=== PATIENT | female | born 1980 | race African-American/Black ===

== ENCOUNTER 2020-06-07 15:10 | Outpatient (CLI) | payer OTHER | END 2020-06-07 15:11 | disposition home or self-care (01) | LOC: BICRAD 15:10 | PROVIDERS: ATTEND Internal Medicine | DX: Z02.71 Encounter for disability determination (principal) | CPT/HCPCS: 72040 ==

== ENCOUNTER 2021-12-02 00:54 | Emergency (ER) | payer SELFPAY ==
[2021-12-02] MEDS ORDERED: Bupivacaine 0.25% 10 ML VIAL ONE (05:29)
== END 2021-12-02 06:58 | disposition home or self-care (01) ==
LOC: ERS 00:54
DX: S62.306A Unspecified fracture of fifth metacarpal bone, right hand, initial encounter for closed fracture (principal); W22.8XXA Striking against or struck by other objects, initial encounter; F17.210 Nicotine dependence, cigarettes, uncomplicated
CPT/HCPCS: 29085; 96372; S0020

== ENCOUNTER 2022-08-04 00:02 | Emergency (ER) | payer SELFPAY ==
[2022-08-04 00:57] LABS: Hemoglobin 12.9 g/dL (12.0-16.0); Mean Corpuscular HGB CONC 33.5 g/dL (32.0-36.0); Mean Corpuscular Hemoglobin 29.7 pg (27.0-31.0); Mean Corpuscular Volume 88.7 fl (78.0-98.0); Mean Platelet Volume 9.5 fL (7.4-10.4); Platelet Count 251 10x3/uL (130-400); RBC Distribution Width 13.2 % (11.5-14.5); Red Blood Cell (RBC) Count 4.34 mill/uL (4.20-5.40)
[2022-08-04 00:59] LABS: Delete Auto Diff?? YES; Manual Diff?? YES
[2022-08-04] MEDS ORDERED: Ketorolac Tromethamine 30 MG/ML VIAL ONE (01:16)
[2022-08-04] MEDS ORDERED: Ondansetron PF 4 MG/2 ML Vial ONE (01:16)
[2022-08-04 01:20] LABS: ALT (SGPT) 25 U/L (8-55); AST (SGOT) 33 U/L (5-34); Albumin 3.6 g/dL (3.5-5.0); Alkaline Phosphatase 68 U/L (40-110); Anion Gap 15 mmol/L (10-20); BUN (Urea Nitrogen) 13 mg/dL (7.0-18.7); Bilirubin, Total 0.4 mg/dL (0.2-1.2); Calc. Creatinine Clearance 0 mL/min (70-130); Calcium 9.2 mg/dL (7.8-10.44); Carbon Dioxide 21 mmol/L (22-29); Chloride 101 mmol/L (98-107); Estimated GFR 83; Globulin 5.5 g/dL (2.4-3.5); Glucose 142 mg/dL (70-105); Lipase 13 U/L (8-78); Potassium 4.1 mmol/L (3.5-5.1); Protein, Total 9.1 g/dL (6.0-8.3); Sodium 133 mmol/L (136-145)
[2022-08-04 01:33] LABS: Band 52 % (5-11); Giant Platelets 0.9 % (0-5); Large Platelets 0.9 % (0-5); Lymphocytes 16 % (21-51); Macrocytosis SLIGHT = 6-15 cells HPF (0-5); Metamyelocyte 4 % (0-0); Monocytes 3 % (0-10); Neutrophil 24 % (42-75); Platelet Morphology Comment Platelets Normal; Polychromasia SLIGHT = 2-3 cells HPF (0-2); Smudge Cells 6.3 %; Total Cell Count 111; Vacuoles MODERATE
[2022-08-04 01:35] LABS: Reflex for Review?? YES
== END 2022-08-04 03:10 | disposition home or self-care (01) ==
LOC: ERS 00:02
DX: J18.9 Pneumonia, unspecified organism (principal); F17.210 Nicotine dependence, cigarettes, uncomplicated
CPT/HCPCS: 36415; 71045; 80053; 83690; 85025; 85060; 96361; 96374; 96375; J1885; J2405

== ENCOUNTER 2022-08-05 20:44 | Inpatient (IN) | payer MEDICAID, OTHER, SELFPAY ==
[2022-08-05 21:50] LABS: Hemoglobin 12.4 g/dL (12.0-16.0); Mean Corpuscular HGB CONC 32.4 g/dL (32.0-36.0); Mean Corpuscular Hemoglobin 29.5 pg (27.0-31.0); Mean Platelet Volume 9.8 fL (7.4-10.4); Platelet Count 278 10x3/uL (130-400); RBC Distribution Width 13.5 % (11.5-14.5); Red Blood Cell (RBC) Count 4.21 mill/uL (4.20-5.40); White Blood Cell (WBC) Count 6.6 10x3/uL (4.8-10.8)
[2022-08-05 21:55] LABS: Delete Auto Diff?? YES; Manual Diff?? YES
[2022-08-05] MEDS ORDERED: Ketorolac Tromethamine 30 MG/ML VIAL ONE (21:57)
[2022-08-05] MEDS ORDERED: Acetaminophen 500 MG TAB ONE (22:07)
[2022-08-05 22:11] LABS: ALT (SGPT) 28 U/L (8-55); AST (SGOT) 34 U/L (5-34); Albumin 3.5 g/dL (3.5-5.0); Alkaline Phosphatase 92 U/L (40-110); Anion Gap 13 mmol/L (10-20); BUN (Urea Nitrogen) 9 mg/dL (7.0-18.7); Bilirubin, Total 0.4 mg/dL (0.2-1.2); Calc. Creatinine Clearance 0 mL/min (70-130); Calcium 8.9 mg/dL (7.8-10.44); Carbon Dioxide 23 mmol/L (22-29); Chloride 100 mmol/L (98-107); Estimated GFR 64; Globulin 5.8 g/dL (2.4-3.5); Glucose 117 mg/dL (70-105); Potassium 4.8 mmol/L (3.5-5.1); Protein, Total 9.3 g/dL (6.0-8.3); Sodium 131 mmol/L (136-145)
[2022-08-05 22:19] LABS: Band 27 % (5-11); CellaVision Operator ID LAB.CLH1; Lymphocytes 22 % (21-51); Monocytes 1 % (0-10); Neutrophil 49 % (42-75); Platelet Morphology Comment Platelets Normal; Polychromasia SLIGHT = 2-3 cells HPF (0-2); Total Cell Count 100
[2022-08-05] MEDS ORDERED: Cefepime 2 GM VIAL ONE (22:31)
[2022-08-05] MEDS ORDERED: Azithromycin 500 MG VIAL ONE (23:30)
[2022-08-06] MEDS ORDERED: Vancomycin 1 GM/200 ML (FROZEN) BAG ONE (00:40)
[2022-08-06] MEDS ORDERED: Acetaminophen 325 MG TAB PO PRN (01:42)
[2022-08-06] MEDS ORDERED: Sodium Chloride 0.9% 1,000 ML IV SCH (02:00)
[2022-08-06 02:28] VITALS: BMI 17.9
[2022-08-06 04:16] LABS: Legionella Urinary Ag Negative (Negative)
[2022-08-06 04:17] LABS: Strep pneumo Urine Ag NEGATIVE (NEGATIVE)
[2022-08-06 05:08] LABS: Hemoglobin 10.1 g/dL (12.0-16.0); Mean Corpuscular HGB CONC 32.3 g/dL (32.0-36.0); Mean Corpuscular Hemoglobin 29.8 pg (27.0-31.0); Mean Corpuscular Volume 92.3 fl (78.0-98.0); Mean Platelet Volume 10.1 fL (7.4-10.4); Platelet Count 258 10x3/uL (130-400); RBC Distribution Width 13.7 % (11.5-14.5); Red Blood Cell (RBC) Count 3.39 mill/uL (4.20-5.40); White Blood Cell (WBC) Count 8.1 10x3/uL (4.8-10.8)
[2022-08-06 05:18] LABS: Delete Auto Diff?? YES; Manual Diff?? YES
[2022-08-06 05:33] LABS: Anion Gap 12 mmol/L (10-20); BUN (Urea Nitrogen) 9 mg/dL (7.0-18.7); Calc. Creatinine Clearance 67 mL/min (70-130); Carbon Dioxide 23 mmol/L (22-29); Chloride 105 mmol/L (98-107); Estimated GFR 88; Glucose 80 mg/dL (70-105); Potassium 4.3 mmol/L (3.5-5.1); Sodium 136 mmol/L (136-145)
[2022-08-06 05:43] LABS: Anisocytosis MODERATE=16-30 cells HPF (0-5); Band 24 % (5-11); CellaVision Operator ID LAB.CLH1; Eosinophils 2 % (0-10); Hypochromia SLIGHT = 6-15 cells HPF (0-5); Lymphocytes 21 % (21-51); Macrocytosis SLIGHT = 6-15 cells HPF (0-5); Monocytes 4 % (0-10); Neutrophil 49 % (42-75); Platelet Morphology Comment Platelets Normal; Polychromasia SLIGHT = 2-3 cells HPF (0-2); Total Cell Count 100
[2022-08-06 05:50] LABS: SARS-CoV-2 NAA Rapid Test Not Detected (NotDetected)
[2022-08-06] MEDS ORDERED: Ketorolac Tromethamine 30 MG/ML VIAL IVP SCH (06:00)
[2022-08-06 07:40] LABS: Hemoglobin A1c 5.4 % (4.0-6.0)
[2022-08-06] MEDS ORDERED: Iopamidol-370 76% 500 ML MDV (1 ML CHARGE) ONE (08:53)
[2022-08-06] MEDS: Cefepime 2 GM in Sodium Chloride 0.9% 100 ML IVPB SCH ×2 (09:58→20:56)
[2022-08-06] MEDS: traMADol HCl 50 MG TAB PO PRN ×2 (13:19→20:56)
[2022-08-06] MEDS: Vancomycin HCl 500 MG in Sodium Chloride 0.9% 100 ML IVPB SCH (13:21)
[2022-08-06] MEDS ORDERED: Ketorolac Tromethamine 10 MG TAB PO PRN (14:04)
[2022-08-06] MEDS: Azithromycin 500 MG in Sodium Chloride 0.9% 250 ML 250 ML IVPB SCH (23:09)
[2022-08-07] MEDS: Vancomycin HCl 500 MG in Sodium Chloride 0.9% 100 ML IVPB SCH (02:27)
[2022-08-07 05:12] LABS: #Monocytes 0.8 thou/uL (0.11-0.59); #Neutrophils 6.2 thou/uL (1.40-6.50); %Basophils 0.3 % (0.0-1.0); %Eosinophils 0.5 % (0.0-10.0); %Lymphocytes 19.4 % (21.0-51.0); %Monocytes 8.6 % (0.0-10.0); %Neutrophils 70.9 % (42.0-75.0); Mean Corpuscular HGB CONC 31.8 g/dL (32.0-36.0); Mean Corpuscular Hemoglobin 28.7 pg (27.0-31.0); Mean Corpuscular Volume 90.1 fl (78.0-98.0); Mean Platelet Volume 9.7 fL (7.4-10.4); Platelet Count 239 10x3/uL (130-400); RBC Distribution Width 13.6 % (11.5-14.5); Red Blood Cell (RBC) Count 3.14 mill/uL (4.20-5.40); White Blood Cell (WBC) Count 8.8 10x3/uL (4.8-10.8)
[2022-08-07 05:14] LABS: Manual Diff?? YES
[2022-08-07 05:24] LABS: Anion Gap 10 mmol/L (10-20); BUN (Urea Nitrogen) 6 mg/dL (7.0-18.7); Calc. Creatinine Clearance 80 mL/min (70-130); Calcium 8.1 mg/dL (7.8-10.44); Carbon Dioxide 24 mmol/L (22-29); Chloride 105 mmol/L (98-107); Estimated GFR 109; Glucose 94 mg/dL (70-105); Potassium 3.7 mmol/L (3.5-5.1); Sodium 135 mmol/L (136-145)
[2022-08-07] MEDS: Cefepime 2 GM in Sodium Chloride 0.9% 100 ML IVPB SCH ×2 (09:31→22:08)
[2022-08-07] MEDS: BIKTARVY PO SCH (09:32)
[2022-08-07] MEDS: traMADol HCl 50 MG TAB PO PRN ×3 (09:34→22:05)
[2022-08-07 11:31] LABS: Band 17 % (5-11); CellaVision Operator ID LAB.GE; Lymphocytes 14 % (21-51); Metamyelocyte 1 % (0-0); Monocytes 14 % (0-10); Neutrophil 54 % (42-75); Platelet Morphology Comment Platelets Normal; Polychromasia SLIGHT = 2-3 cells HPF (0-2); Smudge Cells 7.9 %; Total Cell Count 101
[2022-08-07 12:42] LABS: Vancomycin, Trough 3.7 ug/mL
[2022-08-07] MEDS: Vancomycin 1 GM in Premix Bag 1 BAG IVPB SCH (13:44)
[2022-08-07 14:37] LABS: %CD4 (Helper/Inducer) 32.1 % (30.8-58.5); Absolute CD4 417 /uL (359-1519); Lymphocytes/Gated Cell Count 1.3 x10E3/uL (0.7-3.1); Total Lymphocyte 18 % (Not Estab.); WBC Total Count 7.4 x10E3/uL (3.4-10.8)
[2022-08-07] MEDS: Ondansetron PF 4 MG/2 ML Vial IVP PRN ×2 (15:17→22:08)
[2022-08-08] MEDS: Azithromycin 500 MG in Sodium Chloride 0.9% 250 ML 250 ML IVPB SCH ×2 (01:25→22:44)
[2022-08-08] MEDS: Benzonatate 100 MG CAP PO PRN ×2 (01:34→09:12)
[2022-08-08] MEDS: GUAIFENESIN SF SOLN 200 MG/10 ML UDCUP PO PRN ×2 (01:34→20:20)
[2022-08-08] MEDS: Vancomycin 1 GM in Premix Bag 1 BAG IVPB SCH ×2 (03:55→14:24)
[2022-08-08 04:45] LABS: Hemoglobin 8.9 g/dL (12.0-16.0); Mean Corpuscular HGB CONC 33.8 g/dL (32.0-36.0); Mean Corpuscular Hemoglobin 29.7 pg (27.0-31.0); Mean Corpuscular Volume 87.7 fl (78.0-98.0); Mean Platelet Volume 9.6 fL (7.4-10.4); Platelet Count 284 10x3/uL (130-400); RBC Distribution Width 13.2 % (11.5-14.5); White Blood Cell (WBC) Count 4.8 10x3/uL (4.8-10.8)
[2022-08-08 04:48] LABS: Delete Auto Diff?? YES; Manual Diff?? YES
[2022-08-08 05:10] LABS: Anion Gap 12 mmol/L (10-20); BUN (Urea Nitrogen) 6 mg/dL (7.0-18.7); Calc. Creatinine Clearance 75 mL/min (70-130); Calcium 8.3 mg/dL (7.8-10.44); Carbon Dioxide 23 mmol/L (22-29); Chloride 103 mmol/L (98-107); Estimated GFR 101; Glucose 122 mg/dL (70-105); Potassium 3.2 mmol/L (3.5-5.1); Sodium 135 mmol/L (136-145)
[2022-08-08 05:12] LABS: Band 4 % (5-11); CellaVision Operator ID LAB.CLH1; Eosinophils 3 % (0-10); Hypochromia SLIGHT = 6-15 cells HPF (0-5); Lymphocytes 20 % (21-51); Monocytes 5 % (0-10); Neutrophil 67 % (42-75); Platelet Morphology Comment Platelets Normal; Polychromasia SLIGHT = 2-3 cells HPF (0-2); Reactive Lymphocytes 1 % (0-10); Total Cell Count 101
[2022-08-08] MEDS: Cefepime 2 GM in Sodium Chloride 0.9% 100 ML IVPB SCH ×2 (09:11→20:20)
[2022-08-08] MEDS: traMADol HCl 50 MG TAB PO PRN (09:12)
[2022-08-08] MEDS: Ondansetron PF 4 MG/2 ML Vial IVP PRN ×2 (09:12→20:19)
[2022-08-08] MEDS: BIKTARVY PO SCH (09:16)
[2022-08-09] MEDS: Cefepime 2 GM in Sodium Chloride 0.9% 100 ML IVPB SCH (08:16)
[2022-08-09] MEDS: BIKTARVY PO SCH (08:17)
[2022-08-09] MEDS: Ondansetron PF 4 MG/2 ML Vial IVP PRN (08:17)
[2022-08-09 09:20] VITALS: BP 118/75; TEMP 98.2
== END 2022-08-09 12:16 | disposition home or self-care (01) | DRG 975 ==
LOC: ERS 20:44 → 2NO 08-06 00:23
PROVIDERS: ADMIT Internal Medicine; ATTEND Hospitalist
DX: A41.9 Sepsis, unspecified organism (principal); B20 Human immunodeficiency virus [HIV] disease; D62 Acute posthemorrhagic anemia; J18.9 Pneumonia, unspecified organism; F17.210 Nicotine dependence, cigarettes, uncomplicated; G62.9 Polyneuropathy, unspecified; F41.9 Anxiety disorder, unspecified; F32.A Depression, unspecified; Z20.822 Contact with and (suspected) exposure to COVID-19
CPT/HCPCS: 36415; 71045; 71275; 80048; 80053; 80202; 83036; 83605; 85025; 85379; 86361; 87040; 87070; 87081; 87205; 87449; 87536; 87633; 87798; 87804; 87899; 94640; 96361; 96365; 96367; 96375; J0456; J0692; J1650; J1885; J2405; J3370; J3370-JW; J3490; J7050; J7611; Q9967; U0002